=== PATIENT | female | born 1995 | race Caucasian/White ===

== ENCOUNTER 2017-04-20 14:09 | Emergency (ER) | payer OTHER ==
[2017-04-20 14:45] VITALS: BP 130/70
--- NOTE | 2017-04-20 15:00 | UC ---
Complaint Female HPI - HPI Summary HPI Summary: urinary pain, urgency, frequency, and blood starting last night. Denies fever, vomiting, or back pain. - History Of Current Complaint Stated Complaint: UTI Time Seen by Provider: 04/20/17 14:44 Hx Obtained From: Patient Hx Last Menstrual Period: control ?: No Onset/Duration: Gradual Onset, Lasting Hours Timing: Constant Severity Initially: Moderate Severity Currently: Moderate Character: Burning Aggravating Factor(s): Urination Associated Signs And Symptoms: Negative: Fever, Back Pain, Vaginal Bleeding/ Discharge, Vaginal Discharge, Vomiting(# Of Episodes =) - Allergies/Home Medications Allergies/Adverse Reactions: Allergies Allergy/AdvReac Type Severity Reaction Status Date / Time No Known Allergies Allergy Verified 04/20/17 14:45 PMH/Surg Hx/FS Hx/Imm Hx Previously Healthy: Yes - Surgical History Surgical History: None - Family History Known Family History: Positive: Hypertension - Social History Lives: Alone Alcohol Use: Occasionally Substance Use Type: None Smoking Status (MU): Never Smoked Tobacco Review of Systems Constitutional: Negative Skin: Negative Eyes: Negative ENT: Negative Respiratory: Negative Cardiovascular: Negative Gastrointestinal: Negative Genitourinary: Dysuria, Hematuria, Frequency, Urgency Motor: Negative Neurovascular: Negative Musculoskeletal: Negative Neurological: Negative Psychological: Negative Is Patient Immunocompromised?: No All Other Systems Reviewed And Are Negative: Yes Physical Exam Triage Information Reviewed: Yes Appearance: Well-Appearing, No Pain Distress, Well-Nourished Vital Signs: Initial Vital Signs Temp 98.8 F 04/20/17 14:42 Pulse 68 04/20/17 14:42 Resp 18 04/20/17 14:42 BP 130/70 04/20/17 14:42 Pulse Ox 100 04/20/17 14:42 Vital Signs Reviewed: Yes Eye Exam: Normal, Other - PERRL Eyes: Positive: Conjunctiva Clear ENT Exam: Normal ENT: Positive: Normal ENT inspection, Hearing grossly normal, Pharynx normal, TMs normal Dental Exam: Normal Neck exam: Normal Neck: Positive: Supple, Nontender, No Lymphadenopathy Cardiovascular Exam: Normal Cardiovascular: Positive: RRR, No Murmur Abdomen Description: Positive: Soft. Negative: CVA Tenderness (R), CVA Tenderness (L) Musculoskeletal Exam: Normal Neurological Exam: Normal Neurological: Positive: Alert Psychological Exam: Normal Skin Exam: Normal Complaint Female Dx - Differential Dx/Diagnosis Provider Diagnoses: UTI Discharge - Discharge Plan Condition: Stable Disposition: HOME Prescriptions: Nitrofurantoin Monohyd Macro [Macrobid] 100 mg PO BID #10 cap Patient Education Materials: Urinary Tract Infection in Women (ED) Additional Instructions: Call or return if you do not have marked improvement within 48 hours.
== END 2017-04-20 15:27 | disposition home or self-care (01) ==
LOC: UCEAST 14:09
DX: N39.0 Urinary tract infection, site not specified (principal); R31.9 Hematuria, unspecified; Z32.02 Encounter for pregnancy test, result negative
CPT/HCPCS: 81003; 84702; 87077; 87086; 99202; G0463

== ENCOUNTER 2017-05-05 13:26 | Emergency (ER) | payer OTHER ==
[2017-05-05 13:52] VITALS: BP 126/62
--- NOTE | 2017-05-05 15:10 | UC ---
Complaint Female HPI - HPI Summary HPI Summary: Patient presents to the with CC of urgency, frequency, burning upon urination. Dark colored, cloudy urine. Denies flank pain. Denies diaphoresis and chills. Denies known fever. No abnormal vaginal discharge reported. Otherwise healthy. UTI 2 weeks ago treated with macrobid which improved symptoms for 2 days and now worsening again. She is otherwise healthy and takes no medications. She has only had 1 other UTI. - History Of Current Complaint Chief Complaint: UCGU Stated Complaint: URINARY ISSUE Time Seen by Provider: 05/05/17 13:58 Hx Obtained From: Patient Hx Last Menstrual Period: control ?: No Onset/Duration: Sudden Onset Timing: Constant Severity Initially: Moderate Severity Currently: Moderate Pain Intensity: 2 Pain Scale Used: 0-10 Numeric Character: Burning, Cramping Associated Signs And Symptoms: Positive: Negative. Negative: Back Pain, Vaginal Bleeding/Discharge, Vaginal Discharge, Nausea, Genital Blisters, Retained Foregin Body (Specify) - Risk Factors Ectopic Risk Factor: Negative Ovarian Torsion Risk Factor: Negative - Allergies/Home Medications Allergies/Adverse Reactions: Allergies Allergy/AdvReac Type Severity Reaction Status Date / Time No Known Allergies Allergy Verified 05/05/17 13:49 Home Medications: Home Medications Oral Control 05/05/17 [History] PMH/Surg Hx/FS Hx/Imm Hx Previously Healthy: Yes - Surgical History Surgical History: None - Family History Known Family History: Positive: Hypertension - Social History Occupation: Employed Part-time Lives: With Family Alcohol Use: Occasionally Substance Use Type: None Smoking Status (MU): Never Smoked Tobacco Review of Systems Constitutional: Negative Skin: Negative Respiratory: Negative Cardiovascular: Negative Genitourinary: Dysuria, Frequency, Urgency Motor: Negative Neurovascular: Negative Neurological: Negative Psychological: Negative Is Patient Immunocompromised?: No All Other Systems Reviewed And Are Negative: Yes Physical Exam Triage Information Reviewed: Yes Appearance: Well-Appearing, Well-Nourished Vital Signs: Initial Vital Signs Temp 98.9 F 05/05/17 13:50 Pulse 78 05/05/17 13:50 Resp 16 05/05/17 13:50 BP 126/62 05/05/17 13:50 Pulse Ox 100 05/05/17 13:50 Vital Signs Reviewed: Yes Eye Exam: Normal Eyes: Positive: Conjunctiva Clear Neck exam: Normal Neck: Positive: Supple, No Lymphadenopathy Respiratory Exam: Normal Respiratory: Positive: Chest non-tender, Lungs clear Cardiovascular Exam: Normal Cardiovascular: Positive: RRR Musculoskeletal Exam: Normal Musculoskeletal: Positive: Strength Intact Neurological Exam: Normal Neurological: Positive: Alert Psychological: Positive: Normal Response To Family Skin Exam: Normal Complaint Female Dx - Course Course Of Treatment: UA performed. WBC and leuks seen. Labs WNL. Patient experiencing urgency, frequency and pain on urination. Dark urine noted. No abnormal vaginal discharge or bleeding. No CVA tenderness bilaterally. Previous UTI within last 6 months and no recent Augmentin use. Will treat for uncomplicated UTI. Patient is made aware this may turn into a complicated UTI d /t second UTI within 2 weeks. Keflex x 7 days given. Pyridium given for comfort. Return precautions and follow up with PCP. - Differential Dx/Diagnosis Differential Diagnosis/HQI/PQRI: Pelvic Inflammatory Disease, Renal Colic, Ureteral Stone, Urinary Tract Infection Provider Diagnoses: UTI Discharge - Discharge Plan Condition: Stable Disposition: HOME Prescriptions: Cephalexin CAP* [Keflex CAP*] 500 mg PO QID #28 cap MDD 4 Phenazopyridine TAB* [Pyridium 100 mg TAB*] 100 mg PO TID #12 tab Patient Education Materials: Urinary Tract Infection in Women (ED) Referrals: No Primary Care Phys,NOPCP [Primary Care Provider] - Additional Instructions: Dx. Urinary Tract Infection Drink plenty of fluids. Supplement with cranberry or johns juice. You may also take an over the counter cranberry supplement. If you have any questions about this, you may ask your pharmacist. If your symptoms have not improved in 1-2 days, if you develop fever, sweats or chills, please go to your emergency room, or call your PCP. Antibiotics were prescribed to you. Please take as directed. Supplement with over the counter probiotics on the opposite schedule of your antibiotic to prevent secondary infections. Do not take together as they may counteract each other. Pyridium: This medication is used to treat pain, burning, increased urination, and increased urge to urinate. These symptoms are usually caused by infection, injury, surgery, catheter, or other conditions that irritate the lower urinary tract. Pyridium will treat the symptoms of a urinary tract infection, but this medication does not treat the actual infection. Take the antibiotic that your doctor prescribes to treat your infection. Pyridium will most likely darken the color of your urine to an orange or red color. This is a normal effect and is not cause for alarm unless you have other symptoms such as pale or yellowed skin, fever, stomach pain, nausea, and vomiting. Darkened urine may also cause stains to your underwear, which may or may not be removed by laundering. It can also permanently stain soft contact lenses, and you should not wear them while taking this medicine.
--- NOTE | 2017-05-07 16:46 | ED ---
Progress - Progress Note Progress Note: CALL PATIENT SEE HOW SHE IS DOING. IF NOT BETTER WILL CALL IN MACROBID. Course/Dx - Course Course Of Treatment: UA performed. WBC and leuks seen. Labs WNL. Patient experiencing urgency, frequency and pain on urination. Dark urine noted. No abnormal vaginal discharge or bleeding. No CVA tenderness bilaterally. Previous UTI within last 6 months and no recent Augmentin use. Will treat for uncomplicated UTI. Patient is made aware this may turn into a complicated UTI d /t second UTI within 2 weeks. Keflex x 7 days given. Pyridium given for comfort. Return precautions and follow up with PCP. - Diagnoses Provider Diagnoses: UTI (urinary tract infection)
== END 2017-05-05 14:35 | disposition home or self-care (01) ==
LOC: UCEAST 13:26
DX: N39.0 Urinary tract infection, site not specified (principal)
CPT/HCPCS: 81003; 87077; 87086; 99212; G0463

== ENCOUNTER 2017-05-08 19:56 | Emergency (ER) | payer OTHER ==
[2017-05-08 21:02] LABS: Urine Bacteria Absent (Absent); Urine Bilirubin Negative (Negative); Urine Glucose Negative (Negative); Urine Nitrite Negative (Negative)
[2017-05-08 22:17] VITALS: BP 124/62
[2017-05-08 22:30] LABS: Hematocrit 36 % (35-47); Hemoglobin 12.1 g/dl (12.0-16.0); Mean Corpuscular HGB Conc 34 g/dl (31-36); Mean Corpuscular Hemoglobin 30 pg (27-31); Mean Corpuscular Volume 90 fL (80-97); Mean Platelet Volume 8 um3 (7.4-10.4); Red Cell Distribution Width 13 % (10.5-15); White Blood Count 13.5 10^3/ul (3.5-10.8)
[2017-05-08 22:44] LABS: ALT 7 U/L (7-52); AST 11 U/L (13-39); Albumin 4.4 g/dL (3.2-5.2); Alkaline Phosphatase 59 U/L (34-104); Anion Gap 6 mmol/L (2-11); BUN/Creatinine Ratio 12.5 (8-20); Blood Urea Nitrogen 9 mg/dL (6-24); C Reactive Protein 28.11 mg/L (< 5.00); CO2 Carbon Dioxide 28 mmol/L (22-32); Calcium 9.4 mg/dL (8.6-10.3); Chloride 103 mmol/L (101-111); EGFR African American 134.2 (>60); EGFR Non-African American 104.3 (>60); Globulin 3.1 g/dL (2-4); Glucose 104 mg/dL (70-100); Lipase < 10 U/L (11.0-82.0); Sodium 137 mmol/L (133-145); Total Protein 7.5 g/dL (6.4-8.9)
--- NOTE | 2017-05-08 23:23 | ED ---
GI/ HPI - HPI Summary HPI Summary: 21F presents with flank pain and burning with urination for couple days. Was seen at urgent care and told that had uti a week ago was placed on keflex and got better. then couple days after finished antibiotic developed pain with urination again. states seen at urgent care and placed on macrobid a couple days ago. Her flank pain is intermittent. she is on control. She denies any fever. She denies any nausea or vomiting. occasionally has suprapubic pain. was prescribed pyridium that did not take. no diarrhea or constipation. no previous abdominal surgeries. - History of Current Complaint Chief Complaint: EDUrogenitalProblems Time Seen by Provider: 05/08/17 22:29 Stated Complaint: FLANK PAIN Hx Last Menstrual Period: control Pain Intensity: 0 - Allergy/Home Medications Allergies/Adverse Reactions: Allergies Allergy/AdvReac Type Severity Reaction Status Date / Time No Known Allergies Allergy Verified 05/05/17 13:49 PMH/Surg Hx/FS Hx/Imm Hx Endocrine/Hematology History: Denies: Hx Diabetes, Hx Thyroid Disease Cardiovascular History: Denies: Hx Hypertension Respiratory History: Denies: Hx Asthma, Hx Chronic Obstructive Pulmonary Disease (COPD) GI History: Denies: Hx Ulcer Infectious Disease History: No Infectious Disease History: Denies: Hx Clostridium Difficile, Hx Hepatitis, Hx Human Immunodeficiency Virus (HIV), Hx of Known/Suspected MRSA, Hx Shingles, Hx Tuberculosis, Hx Known/ Suspected VRE, Hx Known/Suspected VRSA, History Other Infectious Disease, Traveled Outside the [place] in Last 30 Days - Family History Known Family History: Positive: Hypertension - Social History Alcohol Use: Occasionally Substance Use Type: Reports: None Smoking Status (MU): Never Smoked Tobacco Review of Systems Negative: Fever Negative: Chest Pain Negative: Shortness Of Breath Negative: Abdominal Pain, Vomiting, Nausea Positive: dysuria, flank pain All Other Systems Reviewed And Are Negative: Yes Physical Exam Triage Information Reviewed: Yes Vital Signs On Initial Exam: Initial Vitals Temp Pulse Resp BP Pulse Ox 96.8 F 69 14 144/94 98 05/08/17 19:59 05/08/17 19:59 05/08/17 19:59 05/08/17 19:59 05/08/17 19:59 Vital Signs Reviewed: Yes Appearance: Positive: Well-Appearing Skin: Positive: Warm, Dry Head/Face: Positive: Normal Head/Face Inspection Eyes: Positive: Normal, EOMI, ALFREDO, Conjunctiva Clear ENT: Positive: Normal ENT inspection, Pharynx normal, TMs normal Respiratory/Lung Sounds: Positive: Clear to Auscultation, Breath Sounds Present Cardiovascular: Positive: Normal, RRR Abdomen Description: Positive: Nontender, Soft. Negative: CVA Tenderness (R), CVA Tenderness (L) Bowel Sounds: Positive: Present - [place] Coma Scale Coma Scale Total: 15 Diagnostics - Vital Signs Vital Signs Temp Pulse Resp BP Pulse Ox 05/08/17 22:16 97.8 F 70 14 124/62 100 05/08/17 19:59 96.8 F 69 14 144/94 98 - Laboratory Lab Results: Lab Results 05/08/17 05/08/17 05/08/17 Range/Units 20:21 22:15 22:15 WBC 13.5 H (3.5-10.8) 10^3/ul RBC 4.00 (4.0-5.4) 10^6/ul Hgb 12.1 (12.0-16.0) g/dl Hct 36 (35-47) % MCV 90 (80-97) fL MCH 30 (27-31) pg MCHC 34 (31-36) g/dl RDW 13 (10.5-15) % Plt Count 259 (150-450) 10^3/ul MPV 8 (7.4-10.4) um3 Neut % (Auto) 70.0 (38-83) % Lymph % (Auto) 19.4 L (25-47) % [place] % (Auto) 8.6 (1-9) % Eos % (Auto) 1.2 (0-6) % Baso % (Auto) 0.8 (0-2) % Absolute Neuts (auto) 9.5 H (1.5-7.7) 10^3/ul Absolute Lymphs (auto) 2.6 (1.0-4.8) 10^3/ul Absolute Monos (auto) 1.2 H (0-0.8) 10^3/ul Absolute Eos (auto) 0.2 (0-0.6) 10^3/ul Absolute Basos (auto) 0.1 (0-0.2) 10^3/ul Absolute Nucleated RBC 0.01 10^3/ul Nucleated RBC % 0 Sodium 137 (133-145) mmol/L Potassium 4.0 (3.5-5.0) mmol/L Chloride 103 (101-111) mmol/L Carbon Dioxide 28 (22-32) mmol/L Anion Gap 6 (2-11) mmol/L BUN 9 (6-24) mg/dL Creatinine 0.72 (0.51-0.95) mg/dL Est GFR ( Amer) 134.2 (>60) Est GFR (Non-Af Amer) 104.3 (>60) BUN/Creatinine Ratio 12.5 (8-20) Glucose 104 H (70-100) mg/dL Calcium 9.4 (8.6-10.3) mg/dL Total Bilirubin 0.50 (0.2-1.0) mg/dL AST 11 L (13-39) U/L ALT 7 (7-52) U/L Alkaline Phosphatase 59 (34-104) U/L C-Reactive Protein 28.11 H (< 5.00) mg/L Total Protein 7.5 (6.4-8.9) g/dL Albumin 4.4 (3.2-5.2) g/dL Globulin 3.1 (2-4) g/dL Albumin/Globulin Ratio 1.4 (1-3) Lipase < 10 L (11.0-82.0) U/L Beta HCG, Quant Pending Urine Color Yellow Urine Appearance Cloudy Urine pH 5.0 (5-9) Ur Specific [place] 1.015 (1.010-1.030) Urine Protein 2+(100 mg/dl) H (Negative) Urine Ketones Negative (Negative) Urine Blood 2+ H (Negative) Urine Nitrate Negative (Negative) Urine Bilirubin Negative (Negative) Urine Urobilinogen Negative (Negative) Ur Leukocyte Esterase 1+ H (Negative) Urine WBC (Auto) 3+(>20/hpf) H (Absent) Urine RBC (Auto) 3+(>10/hpf) H (Absent) Ur Squamous Epith Cells Present H (Absent) Urine Bacteria Absent (Absent) Urine Glucose Negative (Negative) Result Diagrams: 05/08/17 22:15 05/08/17 22:15 Lab Statement: Any lab studies that have been ordered have been reviewed, and results considered in the medical decision making process. GIGU Course/Dx - Course Course Of Treatment: 21F presents with flank pain and burning with urination for couple days. Was seen at urgent care and told that had uti a week ago was placed on keflex and got better. then couple days after finished antibiotic developed pain with urination again. states seen at urgent care and placed on macrobid a couple days ago. Her flank pain is intermittent. she is on control. She denies any fever. She denies any nausea or vomiting. occasionally has suprapubic pain. neg CVA tenderness on exam. abdomen soft nontender. labs urine shows uti. wbc 13. will treat with bactrim. patient understands and agrees with plan. - Diagnoses Differential Diagnoses - Female: Pyelonephritis, Urinary Tract Infection, Ureteral Calculi Provider Diagnoses: Pyelonephritis Discharge - Discharge Plan Condition: Good Disposition: HOME Prescriptions: Ondansetron ODT TAB* [Zofran 4 MG Odt TAB*] 4 mg PO Q6H PRN #12 tab.odt PRN Reason: Nausea Sulfamethox/Trimethoprim DS* [Bactrim DS 800/160 TAB*] 1 tab PO BID #27 tab Patient Education Materials: Kidney Infection (ED) Referrals: No Primary Care Phys,NOPCP [Primary Care Provider] - Additional Instructions: Take antibiotic twice a day for 14 days, starting tomorrow Drink plenty of water Use alternative forms of control Take zofran every 6 hours for nausea Take Tylenol or ibuprofen every 6 hours as needed for pain and fever Return to ED if develop severe vomiting, or any new or worsening symptoms
[2017-05-08] MEDS ORDERED: Ciprofloxacin TAB* 500 MG PO ONE (23:40)
[2017-05-08] MEDS ORDERED: Sulfamethox/Trimethoprim DS 800/160* TAB PO ONE (23:45)
== END 2017-05-09 00:24 | disposition home or self-care (01) ==
LOC: ED 19:56
DX: N12 Tubulo-interstitial nephritis, not specified as acute or chronic (principal); R10.84 Generalized abdominal pain; R30.0 Dysuria
CPT/HCPCS: 36415; 80053; 81003; 81015; 83690; 84702; 85025; 86140; 87086; 99282; A9270-GY

== ENCOUNTER 2017-12-28 10:21 | Emergency (ER) | payer OTHER ==
--- NOTE | 2017-12-28 10:29 | UC ---
Lower Extremity/Ankle HPI - HPI Summary HPI Summary: 22 yo female presents with right ankle pain. She tells me that two days ago she was hiking and rolled her ankle on the ground in a inversion fashion. Had immediate pain was still able to ambulate. Since that time has been mildly painful - mostly with ambulation. Has been trying to rest it. Has not been taking anything OTC. Denies numbness or tingling. - History of Current Complaint Stated Complaint: R ANKLE INJURY Time Seen by Provider: 12/28/17 10:29 Hx Obtained From: Patient Hx Last Menstrual Period: January 2017 Onset/Duration: Sudden Onset Severity Initially: Moderate Severity Currently: Mild Pain Intensity: 3 Pain Scale Used: 0-10 Numeric Aggravating Factor(s): Ambulation Alleviating Factor(s): Rest Able to Bear Weight: Yes - Allergies/Home Medications Allergies/Adverse Reactions: Allergies Allergy/AdvReac Type Severity Reaction Status Date / Time Sulfa (Sulfonamide Allergy Rash Verified 12/28/17 10:37 Antibiotics) PMH/Surg Hx/FS Hx/Imm Hx - Additional Past Medical History Additional PMH: None Previously Healthy: Yes - Surgical History Surgical History: None - Family History Known Family History: Positive: Hypertension - Social History Occupation: Student Lives: With Family Alcohol Use: Occasionally Substance Use Type: None Smoking Status (MU): Never Smoked Tobacco Review of Systems Constitutional: Negative Skin: Negative Respiratory: Negative Cardiovascular: Negative Neurovascular: Negative Musculoskeletal: Other: - Right ankle pain Neurological: Negative Psychological: Negative All Other Systems Reviewed And Are Negative: Yes Physical Exam - Summary Physical Exam Summary: GENERAL: NAD. WDWN. No pain distress. SKIN: No rashes, sores, lesions, or open wounds. NECK: Supple. Nontender. No lymphadenopathy. CHEST: No accessory muscle use. Breathing comfortably and in no distress. CV: RRR. Without m/r/g. Pulses intact PT and DP. Brisk cap refill. MSK: Right ankle: Mild TTP about lateral malleolus. Strength 5/5. No edema or obvious bony deformities. Negative talar tilt. No increased laxity. NEURO: Alert. Sensations intact and symmetric B/L LEs PSYCH: Age appropriate behavior. Triage Information Reviewed: Yes Vital Signs: Vital Signs: Temp Pulse Resp BP Pulse Ox 98.5 F 74 14 145/82 100 12/28/17 10:35 12/28/17 10:35 12/28/17 10:35 12/28/17 10:35 12/28/17 10:35 Lower Extremity Course/Dx - Course Course Of Treatment: XR: IMPRESSION: SOFT TISSUE SWELLING. NO ACUTE OSSEOUS INJURY. IF SYMPTOMS PERSIST, RECOMMEND REPEAT. IMAGING. Suspect ankle sprain. Pt declined crutches. Will use a gel ankle splint and BETTY wrap. RICE. Referral to ortho if needed. - Differential Dx/Diagnosis Provider Diagnoses: Right ankle sprain Discharge - Sign-Out/Discharge Documenting (check all that apply): Discharge/Admit/Transfer - Discharge Plan Condition: Stable Disposition: HOME Patient Education Materials: Ankle Sprain (ED) Forms: *Work Release Referrals: No Primary Care Phys,NOPCP [Primary Care Provider] - Malcom Corona MD [Medical Doctor] - If Needed Additional Instructions: If you develop a fever, shortness of breath, chest pain, new or worsening symptoms - please call your PCP or go to the ED. Your blood pressure was high at todays visit. Please see your primary provider within 4 weeks for recheck and re-evaluation. 1) Continue to Rest, Ice, and elevate your ankle as much as possible 2) May take ibuprofen 600mg every 6-8hrs as needed for pain 3) Use the BETTY wrap and gel splint for added support and pain relief 4) If your symptoms persist greater than 7-10days, please call Orthopedics at the number below to schedule a follow up appointment. - Billing Disposition and Condition Condition: STABLE Disposition: HOME
[2017-12-28 10:36] VITALS: BP 145/82
--- NOTE | 2017-12-28 10:55 | RAD ---
HISTORY: Right ankle inversion injury COMPARISONS: None VIEWS: 3, Frontal, lateral, and oblique views of the right ankle FINDINGS: BONE DENSITY: Normal. BONES: There is no displaced fracture. JOINTS: There is no arthropathy. ALIGNMENT: There is no dislocation. SOFT TISSUES: There is circumferential soft tissue swelling. OTHER FINDINGS: None. IMPRESSION: SOFT TISSUE SWELLING. NO ACUTE OSSEOUS INJURY. IF SYMPTOMS PERSIST, RECOMMEND REPEAT IMAGING.
== END 2017-12-28 11:10 | disposition home or self-care (01) ==
LOC: UCEAST 10:21
DX: S93.401A Sprain of unspecified ligament of right ankle, initial encounter (principal); X50.1XXA Overexertion from prolonged static or awkward postures, initial encounter; Y93.01 Activity, walking, marching and hiking; Y92.9 Unspecified place or not applicable; Z88.2 Allergy status to sulfonamides
CPT/HCPCS: 99213; G0463

== ENCOUNTER 2018-02-17 14:51 | Emergency (ER) | payer OTHER ==
[2018-02-17 15:05] VITALS: BP 132/75
--- NOTE | 2018-02-17 15:59 | ED ---
Skin Complaint - HPI Summary HPI Summary: Patient is a 22-year-old female presenting to the with complaint of bull's- eye rash to the left breast. Denies any known tick bites. She states the area is somewhat tender and slightly itchy, but not very painful. A slight warmth to the area as well. Denies any history of this in the past. No history of tick bites or Lyme disease. Denies any fevers, sweats, chills. The lesion has been present for approximately 3 days. - History of Current Complaint Chief Complaint: UCSkin Time Seen by Provider: 02/17/18 15:10 Stated Complaint: BULL'S EYE RASH ON CHEST Hx Obtained From: Patient Hx Last Menstrual Period: continuos bC Onset/Duration: Started Days Ago Skin Exposure Onset/Duration: Hours Ago Onset Severity: Moderate Current Severity: Moderate Pain Intensity: 0 Pain Scale Used: Adult Non Verbal Skin Location: Chest Character: Pruritus, Pain, Redness Aggravating Symptom(s): Touch Alleviating Symptom(s): Cold Associated Signs & Symptoms: Tenderness - Allergy/Home Medications Allergies/Adverse Reactions: Allergies Allergy/AdvReac Type Severity Reaction Status Date / Time Sulfa (Sulfonamide Allergy Rash Verified 02/17/18 15:07 Antibiotics) Home Medications: Home Medications Levonorgestrel-Ethin Estradiol [Larissia 0.1-20 mg-Mcg] 1 tab PO DAILY WITH MEAL 02/17/18 [History Confirmed 02/17/18] PMH/Surg Hx/FS Hx/Imm Hx Previously Healthy: Yes Endocrine/Hematology History: Denies: Hx Diabetes, Hx Thyroid Disease Cardiovascular History: Denies: Hx Hypertension Respiratory History: Denies: Hx Asthma, Hx Chronic Obstructive Pulmonary Disease (COPD) GI History: Denies: Hx Ulcer - Surgical History Surgery Procedure, Year, and Place: denies - Immunization History Hx Pertussis Vaccination: No Immunizations Up to Date: Yes Infectious Disease History: No Infectious Disease History: Denies: Hx Clostridium Difficile, Hx Hepatitis, Hx Human Immunodeficiency Virus (HIV), Hx of Known/Suspected MRSA, Hx Shingles, Hx Tuberculosis, Hx Known/ Suspected VRE, Hx Known/Suspected VRSA, History Other Infectious Disease, Traveled Outside the [place] in Last 30 Days - Family History Known Family History: Positive: Hypertension - Social History Occupation: Unemployed, Student Lives: Dormitory/Roommates Alcohol Use: Rare Hx Substance Use: No Substance Use Type: Reports: None Hx Tobacco Use: No Smoking Status (MU): Never Smoked Tobacco Review of Systems Constitutional: Negative Negative: Fever, Chills, Fatigue, Skin Diaphoresis Negative: Palpitations, Chest Pain Negative: Shortness Of Breath, Cough Genitourinary: Negative Positive: no symptoms reported, see HPI Negative: Arthralgia, Myalgia Positive: Rash - EM rash Neurological: Negative All Other Systems Reviewed And Are Negative: Yes Physical Exam Triage Information Reviewed: Yes Vital Signs On Initial Exam: Initial Vitals Temp Pulse Resp BP Pulse Ox 99.2 F 65 18 132/75 100 02/17/18 15:02 02/17/18 15:02 02/17/18 15:02 02/17/18 15:02 02/17/18 15:02 Vital Signs Reviewed: Yes Appearance: Positive: Well-Appearing, Well-Nourished Skin: Positive: Warm, Skin Color Reflects Adequate Perfusion, Other - bullseye rash measruing 6.5cm in width to the left breast Head/Face: Positive: Normal Head/Face Inspection Eyes: Positive: EOMI, ALFREDO, Conjunctiva Clear Neck: Positive: Supple, Nontender, No Lymphadenopathy Respiratory/Lung Sounds: Positive: Clear to Auscultation, Breath Sounds Present Cardiovascular: Positive: RRR, Pulses are Symmetrical in both Upper and Lower Extremities Musculoskeletal: Positive: Strength/ROM Intact Neurological: Positive: Speech Normal Psychiatric: Positive: Normal, Affect/Mood Appropriate AVPU Assessment: Alert Diagnostics - Vital Signs Vital Signs Temp Pulse Resp BP Pulse Ox 02/17/18 15:02 99.2 F 65 18 132/75 100 - Laboratory Lab Statement: Any lab studies that have been ordered have been reviewed, and results considered in the medical decision making process. Course/Dx - Course Course Of Treatment: During the course of treatment, the patient is evaluated for a Bullseye rash to the left breast. Unknown tick bite. Denies any other injuries to the area. Has never had mastitis or other infections of the breast. Doxycycline twice a day 14 days given. She is to follow-up with Dr. Smyth for any worsening symptoms. She is given information on Lyme disease, doxycycline, tick bite as well as prophylactic treatment and when to treat x 2 weeks. - Diagnoses Provider Diagnoses: Target rash Discharge - Sign-Out/Discharge Documenting (check all that apply): Patient Departure - Discharge Plan Condition: Stable Disposition: HOME Prescriptions: DOXYcycline CAP(*) [DOXYcycline 100MG CAP(*)] 100 mg PO BID #28 cap Patient Education Materials: Doxycycline (By mouth), Lyme Disease (ED), Tick Bite (ED) Referrals: Junie NELSON,Arsenio Lemus [Medical Doctor] - No Primary Care Phys,NOPCP [Primary Care Provider] - Additional Instructions: Sunscreen! - Billing Disposition and Condition Condition: STABLE Disposition: Home
== END 2018-02-17 15:46 | disposition home or self-care (01) ==
LOC: UCEAST 14:51
DX: R21 Rash and other nonspecific skin eruption (principal); Z88.2 Allergy status to sulfonamides
CPT/HCPCS: 99212; G0463

== ENCOUNTER 2018-04-04 12:24 | Emergency (ER) | payer OTHER ==
[2018-04-04 12:44] VITALS: BP 123/78
--- NOTE | 2018-04-04 13:08 | UC ---
Skin Complaint HPI - HPI Summary HPI Summary: started 3 days ago with itchy rash on L forearm, spread to L leg next day and yesterday to abd. Boyfriend also has similar rash on posterior R thigh. very itchy brigitte at night. denies exposure to scabies or bedbugs did go hiking day after rash started on L arm. no recent illness, no new OTC meds or personal care items Boyfriend states his rash is not itchy - History of Current Complaint Chief Complaint: UCRash Time Seen by Provider: 04/04/18 12:48 Stated Complaint: RASH Hx Obtained From: Patient Hx Last Menstrual Period: one year ago ?: No - OBCP Onset Severity: Mild Current Severity: Mild Pain Intensity: 2 - Allergy/Home Medications Allergies/Adverse Reactions: Allergies Allergy/AdvReac Type Severity Reaction Status Date / Time Sulfa (Sulfonamide Allergy Rash Verified 04/04/18 12:44 Antibiotics) Review of Systems Constitutional: Negative Skin: Rash Respiratory: Negative Cardiovascular: Negative Neurological: Negative Psychological: Negative Is Patient Immunocompromised?: No All Other Systems Reviewed And Are Negative: Yes PMH/Surg Hx/FS Hx/Imm Hx Previously Healthy: Yes - Surgical History Surgical History: None Surgery Procedure, Year, and Place: denies - Family History Known Family History: Positive: Hypertension - Social History Occupation: Employed Full-time Lives: With Family Alcohol Use: Rare Substance Use Type: None Smoking Status (MU): Never Smoked Tobacco Physical Exam Triage Information Reviewed: Yes Appearance: Well-Appearing, No Pain Distress, Well-Nourished Vital Signs: Initial Vital Signs Temp 98.9 F 04/04/18 12:41 Pulse 81 04/04/18 12:41 Resp 12 04/04/18 12:41 BP 123/78 04/04/18 12:41 Pulse Ox 100 04/04/18 12:41 Eye Exam: Normal Eyes: Positive: Conjunctiva Clear Respiratory Exam: Normal Cardiovascular Exam: Normal Musculoskeletal Exam: Normal Neurological Exam: Normal Skin: Positive: Other - many individual erythemic, raised lesions scattered over L forearm, L leg and abd. no certain pattern, no vesicles or pustules Course/Dx - Differential Diagnoses - Skin Complaint Differential Diagnoses: Contact Dermatitis, Drug Rash, Local Allergic Reaction, Poison Vesta, Scabies - Diagnoses Provider Diagnoses: rash Discharge - Sign-Out/Discharge Documenting (check all that apply): Patient Departure All imaging exams completed and their final reports reviewed: Yes - Discharge Plan Condition: Good Disposition: HOME Prescriptions: methylPREDNISolone [Medrol Dosepak 4 MG*] 0 mg PO .SEE LINDA INSTRUCTION #1 linda Patient Education Materials: Acute Rash (ED) Referrals: No Primary Care Phys,NOPCP [Primary Care Provider] - Additional Instructions: start medrol dose linda as instructed may use benadryl gel on rash as directed report changing symptoms or non-resolution 1 week - Billing Disposition and Condition Condition: GOOD Disposition: Home
== END 2018-04-04 13:15 | disposition home or self-care (01) ==
LOC: UCEAST 12:24
DX: R21 Rash and other nonspecific skin eruption (principal); Z88.2 Allergy status to sulfonamides
CPT/HCPCS: 99212; G0463

== ENCOUNTER 2019-07-08 10:54 | Emergency (ER) | payer OTHER ==
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
[2019-07-08 12:58] VITALS: BP 116/72
== END 2019-07-08 12:57 | disposition home or self-care (01) ==
LOC: ED 10:54
DX: S00.83XA Contusion of other part of head, initial encounter (principal); Y04.2XXA Assault by strike against or bumped into by another person, initial encounter; Y92.219 Unspecified school as the place of occurrence of the external cause; Y99.0 Civilian activity done for income or pay; Z88.2 Allergy status to sulfonamides
CPT/HCPCS: 99281